=== PATIENT | male | born 1965 | race Caucasian/White ===

== ENCOUNTER 2020-04-06 07:59 | Inpatient (IN) | payer MEDICARE, MEDICAID ==
[2020-04-06] MEDS ORDERED: ceFAZolin 2 GM in Premix Bag 1 BAG IV ONE (08:00)
[2020-04-06] MEDS ORDERED: Propofol 200 MG/20 ML SDV ONE ×3 (08:40→13:01)
[2020-04-06] MEDS ORDERED: Midazolam 1 MG/ML 2 ML SDV ONE ×2 (08:40→11:02)
[2020-04-06] MEDS ORDERED: fentaNYL 100 MCG/2 ML SDV ONE ×3 (08:40→13:59)
[2020-04-06] MEDS: Nozin Nasal Sanitizer NASBOTH SCH ×3 (09:12→21:12)
[2020-04-06] MEDS: Lactated Ringers 1,000 ML IV SCH ×2 (09:29→16:10)
[2020-04-06] MEDS ORDERED: Lactated Ringers 1,000 ML ONE (11:34)
[2020-04-06] MEDS: Povidone-Iodine 10% Soln 118.25 ML Bottle ONE ×2 (11:35→14:04)
[2020-04-06] MEDS ORDERED: Ondansetron 4 MG Tab.DIS PO PRN (14:31)
[2020-04-06] MEDS ORDERED: Dicyclomine 10 MG Cap PO PRN ×2 (14:39→15:51)
[2020-04-06] MEDS ORDERED: Non-Formulary Medication 1 Each (Hydroxyzine Pamoate [Hydroxyzine Pamoate] 50 MG) PO PRN ×2 (14:39→15:51)
[2020-04-06] MEDS ORDERED: Diazepam 5 MG Tab PO PRN (14:39)
[2020-04-06] MEDS ORDERED: ceFAZolin 1 GM in Sodium Chloride 0.9% 50 ML IV SCH ×2 (14:45→16:00)
[2020-04-06] MEDS ORDERED: Morphine 4 MG/ML Syringe IVPUSH ONE (14:50)
--- NOTE | 2020-04-06 15:30 | CR ---
Pelvis 1V or 2V CLINICAL HISTORY: Postop left hip FINDINGS: Patient has bilateral total hip arthroplasties. There are also still sutures in both the the left trochanteric region and right subtrochanteric region. There has been revision on the left following previous dislocation seen in December 2019 IMPRESSION: Bilateral total hip arthroplasties
[2020-04-06] MEDS ORDERED: hydrOXYzine HCl 25 MG Tab PO PRN (16:06)
[2020-04-06] MEDS: Acetaminophen/oxyCODONE 325-5 MG Tab PO PRN ×2 (16:10→21:59)
[2020-04-06] MEDS: Nicotine Polacrilex 2 MG Gum CHEW PRN ×2 (17:02→22:00)
[2020-04-06] MEDS: ceFAZolin 1 GM in Premix Bag 1 BAG IV SCH (17:06)
[2020-04-06] MEDS: Morphine 30 MG Tab.ER PO SCH (18:05)
[2020-04-06] MEDS: Pregabalin 100 MG Cap PO SCH (20:48)
[2020-04-06] MEDS: ClonazePAM 1 MG Tab PO SCH (20:48)
[2020-04-06] MEDS ORDERED: Nozin Nasal Sanitizer NASBOTH SCH (21:00)
[2020-04-06] MEDS ORDERED: ClonazePAM 1 MG Tab PO SCH (21:00)
[2020-04-06] MEDS ORDERED: Pregabalin 100 MG Cap PO SCH (21:00)
[2020-04-06] MEDS ORDERED: AMITRIPTYLINE HCL 100 MG PO SCH ×2 (21:00)
[2020-04-06] MEDS ORDERED: Sodium Chloride 0.9% 500 ML IV ONE (22:02)
[2020-04-07] MEDS: ceFAZolin 1 GM in Premix Bag 1 BAG IV SCH ×2 (02:03→09:17)
[2020-04-07] MEDS: Lactated Ringers 1,000 ML IV SCH (02:16)
[2020-04-07] MEDS: Morphine 2 MG/ML SYRINGE IVPUSH PRN (02:38)
[2020-04-07] MEDS: Acetaminophen/oxyCODONE 325-5 MG Tab PO PRN ×4 (04:50→23:07)
[2020-04-07] MEDS: Morphine 30 MG Tab.ER PO SCH ×2 (06:33→18:17)
[2020-04-07] MEDS: Pantoprazole 40 MG Tab.CR PO SCH (06:59)
[2020-04-07] MEDS: Nicotine Polacrilex 2 MG Gum CHEW PRN ×3 (07:05→11:51)
[2020-04-07] MEDS ORDERED: OLANZAPINE 5 MG PO SCH ×2 (09:00)
[2020-04-07] MEDS ORDERED: Docusate Sodium 100 MG Cap PO SCH (09:00)
[2020-04-07] MEDS ORDERED: atorvaSTATin 20 MG Tab PO SCH (09:00)
[2020-04-07] MEDS ORDERED: PALIPERIDONE 6 MG PO SCH (09:00)
[2020-04-07] MEDS ORDERED: Enoxaparin 30 MG/0.3 ML Syringe SUBCUT SCH (09:00)
[2020-04-07] MEDS ORDERED: VENLAFAXINE PO SCH ×2 (09:00)
[2020-04-07] MEDS ORDERED: Non-Formulary Medication 1 Each (Omeprazole Magnesium [Prilosec Otc] 20 MG) PO SCH ×2 (09:00)
[2020-04-07] MEDS ORDERED: METHYLPHENIDATE HCL 36 MG PO SCH (09:00)
[2020-04-07] MEDS: Nozin Nasal Sanitizer NASBOTH SCH ×2 (09:12→21:30)
[2020-04-07] MEDS: OLANZapine 5 MG Tab PO SCH (09:13)
[2020-04-07] MEDS: Venlafaxine 75 MG Cap.ER PO SCH (09:13)
[2020-04-07] MEDS: ClonazePAM 1 MG Tab PO SCH ×3 (09:16→21:33)
[2020-04-07] MEDS: Pregabalin 100 MG Cap PO SCH ×2 (09:16→21:33)
[2020-04-07] MEDS: Docusate Sodium 100 MG Cap PO SCH (10:25)
[2020-04-07] MEDS: atorvaSTATin 20 MG Tab PO SCH (10:25)
[2020-04-07] MEDS: Enoxaparin 30 MG/0.3 ML Syringe SUBCUT SCH (10:26)
[2020-04-07] MEDS: Paliperidone 3 MG Tab.ER PO SCH (10:26)
[2020-04-07] MEDS: METHYLPHENIDATE 18 MG PO SCH (10:28)
[2020-04-07] MEDS: Ketorolac 30 MG/ML SDV IVPUSH SCH ×2 (10:45→18:29)
--- NOTE | 2020-04-07 15:31 | CR ---
Hip Min 1V Lt portable CLINICAL HISTORY: Popping FINDINGS: There is been superior dislocation of the left hip arthroplasty since the eighth 11/22/2019 study IMPRESSION: Dislocation left hip prosthesis
[2020-04-08] MEDS: Ketorolac 30 MG/ML SDV IVPUSH SCH ×3 (03:30→19:26)
[2020-04-08] MEDS: Morphine 30 MG Tab.ER PO SCH ×2 (06:17→18:03)
[2020-04-08] MEDS: Acetaminophen/oxyCODONE 325-5 MG Tab PO PRN (07:26)
[2020-04-08] MEDS: Pantoprazole 40 MG Tab.CR PO SCH (07:27)
[2020-04-08] MEDS: Paliperidone 3 MG Tab.ER PO SCH (09:23)
[2020-04-08] MEDS: Venlafaxine 75 MG Cap.ER PO SCH (09:23)
[2020-04-08] MEDS: OLANZapine 5 MG Tab PO SCH (09:23)
[2020-04-08] MEDS: Nozin Nasal Sanitizer NASBOTH SCH ×2 (09:23→22:11)
[2020-04-08] MEDS: Docusate Sodium 100 MG Cap PO SCH (09:24)
[2020-04-08] MEDS: atorvaSTATin 20 MG Tab PO SCH (09:24)
[2020-04-08] MEDS: Enoxaparin 30 MG/0.3 ML Syringe SUBCUT SCH (09:26)
[2020-04-08] MEDS: Pregabalin 100 MG Cap PO SCH ×2 (09:30→22:09)
[2020-04-08] MEDS: ClonazePAM 1 MG Tab PO SCH ×3 (09:30→22:09)
[2020-04-08] MEDS: METHYLPHENIDATE 18 MG PO SCH (11:04)
[2020-04-08] MEDS: Morphine 2 MG/ML SYRINGE IVPUSH PRN ×4 (11:15→23:17)
--- NOTE | 2020-04-08 13:51 | PCM.SURGPN ---
- General Info Date of Service: 04/07/20 Date of Surgery/Procedure: 04/06/20 POD#: 1 Functional Status: Reports: Pain Controlled, Tolerating Diet, Ambulating - Review of Systems General: Reports: No Symptoms HEENT: Reports: No Symptoms Pulmonary: Reports: No Symptoms Cardiovascular: Reports: No Symptoms Gastrointestinal: Reports: No Symptoms Genitourinary: Reports: No Symptoms Musculoskeletal: Reports: Leg Pain Skin: Reports: No Symptoms Neurological: Reports: No Symptoms Psychiatric: Reports: No Symptoms - Patient Data Vitals - Most Recent: Last Vital Signs Temp 36.3 C 04/08/20 11:00 Pulse 108 H 04/08/20 11:00 Resp 18 04/08/20 11:00 BP 98/62 04/08/20 11:00 Pulse Ox 97 04/08/20 11:00 Weight - Most Recent: 81.647 kg I&O - Last 24 Hours: Intake & Output 04/07/20 04/08/20 04/08/20 22:59 06:59 14:59 Intake Total 1200 Output Total 220 1950 150 Balance 980 -1950 -150 Med Orders - Current: Current Medications Hydrocodone Bitart/Acetaminophen ([place] 325-5 Mg) 2 tab PO Q4H PRN PRN Reason: Pain (mild 1-3) Amitriptyline HCl (Elavil) 100 mg PO BEDTIME [facility] Last Admin: 04/07/20 21:30 Dose: 100 mg Documented by: Atorvastatin Calcium (Lipitor) 20 mg PO DAILY [facility] Last Admin: 04/08/20 09:24 Dose: 20 mg Documented by: Bandage/Support Products ( Nasal Drill Press Operator For Metal) 1 applic NASBOTH BID [facility] Last Admin: 04/08/20 09:23 Dose: 1 swab Documented by: Clonazepam (Klonopin) 1 mg PO TID [facility] Last Admin: 04/08/20 09:30 Dose: 1 mg Documented by: Diazepam (Valium.) 5 mg PO Q6H PRN PRN Reason: Muscle Spasm Dicyclomine HCl (Bentyl) 10 mg PO QID PRN PRN Reason: Pain Docusate Sodium (Colace) 100 mg PO DAILY [facility] Last Admin: 04/08/20 09:24 Dose: 100 mg Documented by: Enoxaparin Sodium (Lovenox) 30 mg SUBCUT DAILY [facility] Last Admin: 04/08/20 09:26 Dose: 30 mg Documented by: Hydroxyzine HCl (Atarax) 50 mg PO Q6H PRN PRN Reason: ANXIETY Ketorolac Tromethamine (Toradol) 30 mg IVPUSH Q8H [facility] Stop: 04/09/20 03:01 Last Admin: 04/08/20 11:02 Dose: 30 mg Documented by: Magnesium Hydroxide (Milk Of Magnesia) 30 ml PO Q6H PRN PRN Reason: Stool Softener Methylphenidate HCl (Concerta) 36 mg PO DAILY [facility] Last Admin: 04/08/20 11:04 Dose: Not Given Documented by: Morphine Sulfate (Morphine) 2 mg IVPUSH Q1H PRN PRN Reason: Breakthrough Pain Last Admin: 04/08/20 11:15 Dose: 2 mg Documented by: Morphine Sulfate (Ms Contin) 30 mg PO Q12H [facility] Last Admin: 04/08/20 06:17 Dose: 30 mg Documented by: Nicotine Polacrilex (Nicorelief) 2 mg CHEW Q1H PRN PRN Reason: NICOTINE CRAVINGS Last Admin: 04/07/20 11:51 Dose: 2 mg Documented by: Olanzapine (Zyprexa) 5 mg PO DAILY [facility] Last Admin: 04/08/20 09:23 Dose: 5 mg Documented by: Ondansetron HCl (Zofran Odt) 4 mg PO Q6H PRN PRN Reason: Nausea/Vomiting Oxycodone/Acetaminophen (Percocet 325-5 Mg) 0 tab PO Q6H PRN PRN Reason: Pain (severe 7-10) Last Admin: 04/08/20 07:26 Dose: 1 tab Documented by: Paliperidone (Invega) 6 mg PO DAILY [facility] Last Admin: 04/08/20 09:23 Dose: 6 mg Documented by: Pantoprazole Sodium (Protonix) 40 mg PO ACBREAKFAST [facility] Last Admin: 04/08/20 07:27 Dose: 40 mg Documented by: Pregabalin (Lyrica) 100 mg PO BID [facility] Last Admin: 04/08/20 09:30 Dose: 100 mg Documented by: Venlafaxine HCl (Effexor Xr) 300 mg PO DAILY [facility] Last Admin: 04/08/20 09:23 Dose: 300 mg Documented by: Discontinued Medications Atorvastatin Calcium (Lipitor) 20 mg PO DAILY [facility] Clonazepam (Klonopin) 1 mg PO TID [facility] Dicyclomine HCl (Bentyl) 10 mg PO QID PRN PRN Reason: Pain Docusate Sodium (Colace) 100 mg PO DAILY [facility] Enoxaparin Sodium (Lovenox) 30 mg SUBCUT DAILY [facility] Fentanyl (Sublimaze) Confirm Administered Dose 100 mcg .ROUTE .STK-MED ONE Stop: 04/06/20 08:41 Fentanyl (Sublimaze) Confirm Administered Dose 100 mcg .ROUTE .STK-MED ONE Stop: 04/06/20 13:00 Fentanyl (Sublimaze) Confirm Administered Dose 100 mcg .ROUTE .STK-MED ONE Stop: 04/06/20 14:00 Cefazolin Sodium/Dextrose 2 gm (/ Premix) 50 mls @ 100 mls/hr IV ONETIME ONE Stop: 04/06/20 08:29 Last Admin: 04/06/20 10:45 Dose: 100 mls/hr Documented by: Lactated Ringer's (Ringers, Lactated) 1,000 mls @ 100 mls/hr IV ASDIRECTED [facility] Last Admin: 04/07/20 02:16 Dose: 100 mls/hr Documented by: Lactated Ringer's (Ringers, Lactated) Confirm Administered Dose 1,000 mls @ as directed .ROUTE .STK-MED ONE Stop: 04/06/20 11:35 Cefazolin Sodium 1 gm/ Sodium (Chloride) 50 mls @ 200 mls/hr IV Q8H [facility] Stop: 04/07/20 06:59 Last Admin: 04/06/20 16:10 Dose: Not Given Documented by: Cefazolin Sodium/Dextrose 1 gm (/ Premix) 50 mls @ 100 mls/hr IV Q8H [facility] Stop: 04/07/20 10:29 Last Admin: 04/07/20 09:17 Dose: 100 mls/hr Documented by: Sodium Chloride (Normal Saline) 500 mls @ 500 mls/hr IV .BOLUS ONE Stop: 04/06/20 23:01 Last Admin: 04/06/20 22:31 Dose: 500 mls/hr Documented by: Midazolam HCl (Versed 1 Mg/Ml) Confirm Administered Dose 2 mg .ROUTE .STK-MED ONE Stop: 04/06/20 08:41 Midazolam HCl (Versed 1 Mg/Ml) Confirm Administered Dose 2 mg .ROUTE .STK-MED ONE Stop: 04/06/20 11:03 Morphine Sulfate (Morphine) 3 mg IVPUSH ONETIME ONE Stop: 04/06/20 14:51 Last Admin: 04/06/20 14:57 Dose: 3 mg Documented by: Non-Formulary Medication (Amitriptyline Hcl [Amitriptyline Hcl]) 100 mg PO BEDTIME [facility] Non-Formulary Medication (Hydroxyzine Pamoate [Hydroxyzine Pamoate]) 50 mg PO Q6HR PRN PRN Reason: Anxiety Non-Formulary Medication (Methylphenidate Hcl [Methylphenidate Er]) 36 mg PO DAILY [facility] Non-Formulary Medication (Olanzapine [Zyprexa]) 5 mg PO DAILY [facility] Non-Formulary Medication (Omeprazole Magnesium [Prilosec Otc]) 20 mg PO DAILY [facility] Non-Formulary Medication (Paliperidone [Invega]) 6 mg PO DAILY [facility] Non-Formulary Medication (Venlafaxine [Effexor Xr]) 375 mg PO DAILY [facility] Povidone Iodine (Betadine 10% Soln) Confirm Administered Dose 1 ml .ROUTE .STK- MED ONE Stop: 04/06/20 06:53 Last Admin: 04/06/20 14:04 Dose: 40 ml Documented by: Pregabalin (Lyrica) 100 mg PO BID [facility] Propofol (Diprivan 20 Ml) Confirm Administered Dose 200 mg .ROUTE .STK-MED ONE Stop: 04/06/20 08:41 Propofol (Diprivan 20 Ml) Confirm Administered Dose 200 mg .ROUTE .STK-MED ONE Stop: 04/06/20 11:36 Propofol (Diprivan 20 Ml) Confirm Administered Dose 200 mg .ROUTE .STK-MED ONE Stop: 04/06/20 13:02 - Exam Wound/Incisions: Drainage General: Alert, Oriented HEENT: Pupils Equal, Pupils Reactive, EOMI, Mucous Membr. Moist/[place] Neck: Supple Lungs: Clear to Auscultation, Normal Respiratory Effort Cardiovascular: Regular Rate, Regular Rhythm GI/Abdominal Exam: Normal Bowel Sounds, Soft, Non-Tender, No Distention Extremities: Leg Pain, Limited Range of Motion Skin: Warm, Dry Neurological: No New Focal Deficit Psy/Mental Status: Alert, Normal Affect, Normal Mood Physical Findings Comment:: limited strength and ROM of left hip, grinding sensation with motion, Left leg shorter Sepsis Event Note - Evaluation Sepsis Screening Result: Sepsis Risk - Focused Exam Vital Signs: Vital Signs Temp Pulse Resp BP Pulse Ox 04/08/20 11:00 36.3 C 108 H 18 98/62 97 04/08/20 07:16 35.7 C L 111 H 20 113/69 97 Date Exam was Performed: 04/08/20 Time Exam was Performed: 13:59 - Problem List & Annotations (1) Failed total hip arthroplasty with dislocation SNOMED Code(s): 713325760 Code(s): T84.028A - DISLOCATION OF OTHER INTERNAL JOINT PROSTHESIS, INIT ENCNTR; Z96.649 - PRESENCE OF UNSPECIFIED ARTIFICIAL HIP JOINT Status: Acute Current Visit: No Qualifiers: Encounter type: sequela Laterality: left Qualified Code(s): T84.021S - Dislocation of internal left hip prosthesis, sequela (2) Hip pain, left SNOMED Code(s): 68282295 Code(s): M25.552 - PAIN IN LEFT HIP Status: Acute Current Visit: No (3) S/P revision of total hip SNOMED Code(s): 197198539, 095222560, 187199071, 797269998 Code(s): Z96.649 - PRESENCE OF UNSPECIFIED ARTIFICIAL HIP JOINT Status: Acute Current Visit: No (4) Unequal limb length (acquired), unspecified site SNOMED Code(s): 659667892827898 Code(s): M21.70 - UNEQUAL LIMB LENGTH (ACQUIRED), UNSPECIFIED SITE Status: Acute Current Visit: No - Problem List Review Problem List Initiated/Reviewed/Updated: Yes - My Orders Last 24 Hours: Active Orders 24 hr Category Date Time Status Bedrest [RC] ASDIRECTED Care 04/07/20 14:38 Active Convert IV to Saline Lock [OM.PC] Routine Oth 04/07/20 14:38 Ordered Medication Orders Hydrocodone Bitart/Acetaminophen ([place] 325-5 Mg) 2 tab PO Q4H PRN PRN Reason: Pain (mild 1-3) Amitriptyline HCl (Elavil) 100 mg PO BEDTIME [facility] Last Admin: 04/07/20 21:30 Dose: 100 mg Documented by: Admin: 04/06/20 20:48 Dose: 100 mg Documented by: PAT Atorvastatin Calcium (Lipitor) 20 mg PO DAILY [facility] Last Admin: 04/08/20 09:24 Dose: 20 mg Documented by: Admin: 04/07/20 10:25 Dose: 20 mg Documented by: DANE Bandage/Support Products ( Nasal Drill Press Operator For Metal) 1 applic NASBOTH BID [facility] Last Admin: 04/08/20 09:23 Dose: 1 swab Documented by: Admin: 04/07/20 21:30 Dose: 1 swab Documented by: Admin: 04/07/20 09:12 Dose: 1 swab Documented by: Admin: 04/06/20 21:12 Dose: Not Given Documented by: Admin: 04/06/20 16:06 Dose: Not Given Documented by: Admin: 04/06/20 09:12 Dose: 3 swab Documented by: SHEYLA Clonazepam (Klonopin) 1 mg PO TID [facility] Last Admin: 04/08/20 09:30 Dose: 1 mg Documented by: Admin: 04/07/20 21:33 Dose: 1 mg Documented by: Admin: 04/07/20 14:24 Dose: 1 mg Documented by: Admin: 04/07/20 09:16 Dose: 1 mg Documented by: Admin: 04/06/20 20:48 Dose: 1 mg Documented by: PAT Diazepam (Valium.) 5 mg PO Q6H PRN PRN Reason: Muscle Spasm Dicyclomine HCl (Bentyl) 10 mg PO QID PRN PRN Reason: Pain Docusate Sodium (Colace) 100 mg PO DAILY [facility] Last Admin: 04/08/20 09:24 Dose: 100 mg Documented by: Admin: 04/07/20 10:25 Dose: 100 mg Documented by: DANE Enoxaparin Sodium (Lovenox) 30 mg SUBCUT DAILY [facility] Last Admin: 04/08/20 09:26 Dose: 30 mg Documented by: Admin: 04/07/20 10:26 Dose: 30 mg Documented by: DANE Hydroxyzine HCl (Atarax) 50 mg PO Q6H PRN PRN Reason: ANXIETY Ketorolac Tromethamine (Toradol) 30 mg IVPUSH Q8H [facility] Stop: 04/09/20 03:01 Last Admin: 04/08/20 11:02 Dose: 30 mg Documented by: Admin: 04/08/20 03:30 Dose: 30 mg Documented by: Admin: 04/07/20 18:29 Dose: 30 mg Documented by: Admin: 04/07/20 10:45 Dose: 30 mg Documented by: DANE Magnesium Hydroxide (Milk Of Magnesia) 30 ml PO Q6H PRN PRN Reason: Stool Softener Methylphenidate HCl (Concerta) 36 mg PO DAILY [facility] Last Admin: 04/08/20 11:04 Dose: Not Given Documented by: Admin: 04/07/20 10:28 Dose: Not Given Documented by: DANE Morphine Sulfate (Morphine) 2 mg IVPUSH Q1H PRN PRN Reason: Breakthrough Pain Last Admin: 04/08/20 11:15 Dose: 2 mg Documented by: Admin: 04/07/20 02:38 Dose: 2 mg Documented by: YUNIOR Morphine Sulfate (Ms Contin) 30 mg PO Q12H [facility] Last Admin: 04/08/20 06:17 Dose: 30 mg Documented by: Admin: 04/07/20 18:17 Dose: 30 mg Documented by: Admin: 04/07/20 06:33 Dose: 30 mg Documented by: Admin: 04/06/20 18:05 Dose: 30 mg Documented by: DANE Nicotine Polacrilex (Nicorelief) 2 mg CHEW Q1H PRN PRN Reason: NICOTINE CRAVINGS Last Admin: 04/07/20 11:51 Dose: 2 mg Documented by: Admin: 04/07/20 10:36 Dose: 2 mg Documented by: Admin: 04/07/20 07:05 Dose: 2 mg Documented by: Admin: 04/06/20 22:00 Dose: 2 mg Documented by: Admin: 04/06/20 17:02 Dose: 2 mg Documented by: DANE Olanzapine (Zyprexa) 5 mg PO DAILY [facility] Last Admin: 04/08/20 09:23 Dose: 5 mg Documented by: Admin: 04/07/20 09:13 Dose: 5 mg Documented by: DANE Ondansetron HCl (Zofran Odt) 4 mg PO Q6H PRN PRN Reason: Nausea/Vomiting Oxycodone/Acetaminophen (Percocet 325-5 Mg) 0 tab PO Q6H PRN PRN Reason: Pain (severe 7-10) Last Admin: 04/08/20 07:26 Dose: 1 tab Documented by: Admin: 04/07/20 23:07 Dose: 1 tab Documented by: Admin: 04/07/20 16:44 Dose: 2 tab Documented by: Admin: 04/07/20 10:36 Dose: 2 tab Documented by: Admin: 04/07/20 04:50 Dose: 2 tab Documented by: Admin: 04/06/20 21:59 Dose: 2 tab Documented by: Admin: 04/06/20 16:10 Dose: 2 tab Documented by: DANE Paliperidone (Invega) 6 mg PO DAILY [facility] Last Admin: 04/08/20 09:23 Dose: 6 mg Documented by: Admin: 04/07/20 10:26 Dose: 6 mg Documented by: DANE Pantoprazole Sodium (Protonix) 40 mg PO ACBREAKFAST [facility] Last Admin: 04/08/20 07:27 Dose: 40 mg Documented by: Admin: 04/07/20 06:59 Dose: 40 mg Documented by: DANE Pregabalin (Lyrica) 100 mg PO BID [facility] Last Admin: 04/08/20 09:30 Dose: 100 mg Documented by: Admin: 04/07/20 21:33 Dose: 100 mg Documented by: Admin: 04/07/20 09:16 Dose: 100 mg Documented by: Admin: 04/06/20 20:48 Dose: 100 mg Documented by: PAT Venlafaxine HCl (Effexor Xr) 300 mg PO DAILY [facility] Last Admin: 04/08/20 09:23 Dose: 300 mg Documented by: Admin: 04/07/20 09:13 Dose: 300 mg Documented by: DANE - Assessment Assessment (Free Text/Narrative):: Tolerated procedure well and was sitting up in chair midday, pain was reasonably well controlled, was up walking and felt a pop in left hip with increased pain and grinding sensation, x-ray shows that the liner has dislodged from the cup and the femoral head and liner are dislocated. - Plan Plan (Free Text/Narrative):: Will need to revise this with a cemented constrained liner. These components will have to be brought in from [place] and will likely not be available until late Monday or . Can get on the schedule when implants are available. Discussed all this with Wilfredo and used a hip arthroplasty model for illustration, he understands the situation and agrees with the plan.
[2020-04-08] MEDS: Acetaminophen/HYDROcodone 325-5 MG Tab PO PRN ×2 (13:55→22:09)
--- NOTE | 2020-04-08 14:11 | PCM.SURGPN ---
- General Info Date of Service: 04/08/20 Date of Surgery/Procedure: 04/06/20 POD#: 2 Functional Status: Reports: Pain Controlled, Tolerating Diet, Urinating - Review of Systems General: Reports: No Symptoms HEENT: Reports: No Symptoms Pulmonary: Reports: No Symptoms Cardiovascular: Reports: No Symptoms Gastrointestinal: Reports: No Symptoms Genitourinary: Reports: No Symptoms Musculoskeletal: Reports: Leg Pain Skin: Reports: No Symptoms Neurological: Reports: No Symptoms Psychiatric: Reports: No Symptoms - Patient Data Vitals - Most Recent: Last Vital Signs Temp 36.2 C 04/08/20 14:01 Pulse 108 H 04/08/20 14:01 Resp 16 04/08/20 14:01 BP 90/57 L 04/08/20 14:01 Pulse Ox 100 04/08/20 14:01 Weight - Most Recent: 81.647 kg I&O - Last 24 Hours: Intake & Output 04/07/20 04/08/20 04/08/20 22:59 06:59 14:59 Intake Total 1200 1400 Output Total 220 1950 350 Balance 980 -1950 1050 Med Orders - Current: Current Medications Hydrocodone Bitart/Acetaminophen ([place] 325-5 Mg) 2 tab PO Q4H PRN PRN Reason: Pain (mild 1-3) Last Admin: 04/08/20 13:55 Dose: 2 tab Documented by: Amitriptyline HCl (Elavil) 100 mg PO BEDTIME [facility] Last Admin: 04/07/20 21:30 Dose: 100 mg Documented by: Atorvastatin Calcium (Lipitor) 20 mg PO DAILY [facility] Last Admin: 04/08/20 09:24 Dose: 20 mg Documented by: Bandage/Support Products ( Nasal [employer]ist) 1 applic NASBOTH BID [facility] Last Admin: 04/08/20 09:23 Dose: 1 swab Documented by: Clonazepam (Klonopin) 1 mg PO TID [facility] Last Admin: 04/08/20 13:55 Dose: 1 mg Documented by: Diazepam (Valium.) 5 mg PO Q6H PRN PRN Reason: Muscle Spasm Dicyclomine HCl (Bentyl) 10 mg PO QID PRN PRN Reason: Pain Docusate Sodium (Colace) 100 mg PO DAILY [facility] Last Admin: 04/08/20 09:24 Dose: 100 mg Documented by: Enoxaparin Sodium (Lovenox) 30 mg SUBCUT DAILY [facility] Last Admin: 04/08/20 09:26 Dose: 30 mg Documented by: Hydroxyzine HCl (Atarax) 50 mg PO Q6H PRN PRN Reason: ANXIETY Ketorolac Tromethamine (Toradol) 30 mg IVPUSH Q8H [facility] Stop: 04/09/20 03:01 Last Admin: 04/08/20 11:02 Dose: 30 mg Documented by: Magnesium Hydroxide (Milk Of Magnesia) 30 ml PO Q6H PRN PRN Reason: Stool Softener Methylphenidate HCl (Concerta) 36 mg PO DAILY [facility] Last Admin: 04/08/20 11:04 Dose: Not Given Documented by: Morphine Sulfate (Morphine) 2 mg IVPUSH Q1H PRN PRN Reason: Breakthrough Pain Last Admin: 04/08/20 11:15 Dose: 2 mg Documented by: Morphine Sulfate (Ms Contin) 30 mg PO Q12H [facility] Last Admin: 04/08/20 06:17 Dose: 30 mg Documented by: Nicotine Polacrilex (Nicorelief) 2 mg CHEW Q1H PRN PRN Reason: NICOTINE CRAVINGS Last Admin: 04/07/20 11:51 Dose: 2 mg Documented by: Olanzapine (Zyprexa) 5 mg PO DAILY [facility] Last Admin: 04/08/20 09:23 Dose: 5 mg Documented by: Ondansetron HCl (Zofran Odt) 4 mg PO Q6H PRN PRN Reason: Nausea/Vomiting Oxycodone/Acetaminophen (Percocet 325-5 Mg) 0 tab PO Q6H PRN PRN Reason: Pain (severe 7-10) Last Admin: 04/08/20 07:26 Dose: 1 tab Documented by: Paliperidone (Invega) 6 mg PO DAILY [facility] Last Admin: 04/08/20 09:23 Dose: 6 mg Documented by: Pantoprazole Sodium (Protonix) 40 mg PO ACBREAKFAST [facility] Last Admin: 04/08/20 07:27 Dose: 40 mg Documented by: Pregabalin (Lyrica) 100 mg PO BID [facility] Last Admin: 04/08/20 09:30 Dose: 100 mg Documented by: Venlafaxine HCl (Effexor Xr) 300 mg PO DAILY [facility] Last Admin: 04/08/20 09:23 Dose: 300 mg Documented by: Discontinued Medications Atorvastatin Calcium (Lipitor) 20 mg PO DAILY [facility] Clonazepam (Klonopin) 1 mg PO TID [facility] Dicyclomine HCl (Bentyl) 10 mg PO QID PRN PRN Reason: Pain Docusate Sodium (Colace) 100 mg PO DAILY [facility] Enoxaparin Sodium (Lovenox) 30 mg SUBCUT DAILY [facility] Fentanyl (Sublimaze) Confirm Administered Dose 100 mcg .ROUTE .STK-MED ONE Stop: 04/06/20 08:41 Fentanyl (Sublimaze) Confirm Administered Dose 100 mcg .ROUTE .STK-MED ONE Stop: 04/06/20 13:00 Fentanyl (Sublimaze) Confirm Administered Dose 100 mcg .ROUTE .STK-MED ONE Stop: 04/06/20 14:00 Cefazolin Sodium/Dextrose 2 gm (/ Premix) 50 mls @ 100 mls/hr IV ONETIME ONE Stop: 04/06/20 08:29 Last Admin: 04/06/20 10:45 Dose: 100 mls/hr Documented by: Lactated Ringer's (Ringers, Lactated) 1,000 mls @ 100 mls/hr IV ASDIRECTED [facility] Last Admin: 04/07/20 02:16 Dose: 100 mls/hr Documented by: Lactated Ringer's (Ringers, Lactated) Confirm Administered Dose 1,000 mls @ as directed .ROUTE .STK-MED ONE Stop: 04/06/20 11:35 Cefazolin Sodium 1 gm/ Sodium (Chloride) 50 mls @ 200 mls/hr IV Q8H [facility] Stop: 04/07/20 06:59 Last Admin: 04/06/20 16:10 Dose: Not Given Documented by: Cefazolin Sodium/Dextrose 1 gm (/ Premix) 50 mls @ 100 mls/hr IV Q8H [facility] Stop: 04/07/20 10:29 Last Admin: 04/07/20 09:17 Dose: 100 mls/hr Documented by: Sodium Chloride (Normal Saline) 500 mls @ 500 mls/hr IV .BOLUS ONE Stop: 04/06/20 23:01 Last Admin: 04/06/20 22:31 Dose: 500 mls/hr Documented by: Midazolam HCl (Versed 1 Mg/Ml) Confirm Administered Dose 2 mg .ROUTE .STK-MED ONE Stop: 04/06/20 08:41 Midazolam HCl (Versed 1 Mg/Ml) Confirm Administered Dose 2 mg .ROUTE .STK-MED ONE Stop: 04/06/20 11:03 Morphine Sulfate (Morphine) 3 mg IVPUSH ONETIME ONE Stop: 04/06/20 14:51 Last Admin: 04/06/20 14:57 Dose: 3 mg Documented by: Non-Formulary Medication (Amitriptyline Hcl [Amitriptyline Hcl]) 100 mg PO BEDTIME [facility] Non-Formulary Medication (Hydroxyzine Pamoate [Hydroxyzine Pamoate]) 50 mg PO Q6HR PRN PRN Reason: Anxiety Non-Formulary Medication (Methylphenidate Hcl [Methylphenidate Er]) 36 mg PO DAILY [facility] Non-Formulary Medication (Olanzapine [Zyprexa]) 5 mg PO DAILY [facility] Non-Formulary Medication (Omeprazole Magnesium [Prilosec Otc]) 20 mg PO DAILY [facility] Non-Formulary Medication (Paliperidone [Invega]) 6 mg PO DAILY [facility] Non-Formulary Medication (Venlafaxine [Effexor Xr]) 375 mg PO DAILY [facility] Povidone Iodine (Betadine 10% Soln) Confirm Administered Dose 1 ml .ROUTE .STK- MED ONE Stop: 04/06/20 06:53 Last Admin: 04/06/20 14:04 Dose: 40 ml Documented by: Pregabalin (Lyrica) 100 mg PO BID [facility] Propofol (Diprivan 20 Ml) Confirm Administered Dose 200 mg .ROUTE .STK-MED ONE Stop: 04/06/20 08:41 Propofol (Diprivan 20 Ml) Confirm Administered Dose 200 mg .ROUTE .STK-MED ONE Stop: 04/06/20 11:36 Propofol (Diprivan 20 Ml) Confirm Administered Dose 200 mg .ROUTE .STK-MED ONE Stop: 04/06/20 13:02 - Exam Wound/Incisions: Other (No new drainage) General: Alert, Oriented HEENT: Pupils Equal, Pupils Reactive, EOMI, Mucous Membr. Moist/[place] Neck: Supple Lungs: Clear to Auscultation, Normal Respiratory Effort Cardiovascular: Regular Rate, Regular Rhythm GI/Abdominal Exam: Normal Bowel Sounds, Soft, Non-Tender, No Distention Extremities: Leg Pain, Limited Range of Motion Skin: Warm, Dry Neurological: No New Focal Deficit Psy/Mental Status: Alert Sepsis Event Note - Evaluation Sepsis Screening Result: Sepsis Risk - Focused Exam Vital Signs: Vital Signs Temp Pulse Resp BP Pulse Ox 04/08/20 14:01 36.2 C 108 H 16 90/57 L 100 04/08/20 11:00 36.3 C 108 H 18 98/62 97 04/08/20 07:16 35.7 C L 111 H 20 113/69 97 Date Exam was Performed: 04/08/20 Time Exam was Performed: 14:06 - Problem List & Annotations (1) Failed total hip arthroplasty with dislocation SNOMED Code(s): 682508906 Code(s): T84.028A - DISLOCATION OF OTHER INTERNAL JOINT PROSTHESIS, INIT ENCNTR; Z96.649 - PRESENCE OF UNSPECIFIED ARTIFICIAL HIP JOINT Status: Acute Current Visit: No Qualifiers: Encounter type: sequela Laterality: left Qualified Code(s): T84.021S - Dislocation of internal left hip prosthesis, sequela (2) Hip pain, left SNOMED Code(s): 51500622 Code(s): M25.552 - PAIN IN LEFT HIP Status: Acute Current Visit: No (3) S/P revision of total hip SNOMED Code(s): 502265032, 124237159, 877190434, 925561969 Code(s): Z96.649 - PRESENCE OF UNSPECIFIED ARTIFICIAL HIP JOINT Status: Acute Current Visit: No (4) Unequal limb length (acquired), unspecified site SNOMED Code(s): 637267628734665 Code(s): M21.70 - UNEQUAL LIMB LENGTH (ACQUIRED), UNSPECIFIED SITE Status: Acute Current Visit: No - Problem List Review Problem List Initiated/Reviewed/Updated: Yes - My Orders Last 24 Hours: Active Orders 24 hr Category Date Time Status Bedrest [RC] ASDIRECTED Care 04/07/20 14:38 Active Convert IV to Saline Lock [OM.PC] Routine Oth 04/07/20 14:38 Ordered Medication Orders Hydrocodone Bitart/Acetaminophen ([place] 325-5 Mg) 2 tab PO Q4H PRN PRN Reason: Pain (mild 1-3) Last Admin: 04/08/20 13:55 Dose: 2 tab Documented by: ELIGIO Amitriptyline HCl (Elavil) 100 mg PO BEDTIME [facility] Last Admin: 04/07/20 21:30 Dose: 100 mg Documented by: Admin: 04/06/20 20:48 Dose: 100 mg Documented by: PAT Atorvastatin Calcium (Lipitor) 20 mg PO DAILY [facility] Last Admin: 04/08/20 09:24 Dose: 20 mg Documented by: Admin: 04/07/20 10:25 Dose: 20 mg Documented by: DANE Bandage/Support Products ( Nasal [employer]) 1 applic NASBOTH BID [facility] Last Admin: 04/08/20 09:23 Dose: 1 swab Documented by: Admin: 04/07/20 21:30 Dose: 1 swab Documented by: Admin: 04/07/20 09:12 Dose: 1 swab Documented by: Admin: 04/06/20 21:12 Dose: Not Given Documented by: Admin: 04/06/20 16:06 Dose: Not Given Documented by: Admin: 04/06/20 09:12 Dose: 3 swab Documented by: SHEYLA Clonazepam (Klonopin) 1 mg PO TID [facility] Admin: 04/08/20 13:55 Dose: 1 mg Documented by: Admin: 04/08/20 09:30 Dose: 1 mg Documented by: Admin: 04/07/20 21:33 Dose: 1 mg Documented by: Admin: 04/07/20 14:24 Dose: 1 mg Documented by: Admin: 04/07/20 09:16 Dose: 1 mg Documented by: Admin: 04/06/20 20:48 Dose: 1 mg Documented by: PAT Diazepam (Valium.) 5 mg PO Q6H PRN PRN Reason: Muscle Spasm Dicyclomine HCl (Bentyl) 10 mg PO QID PRN PRN Reason: Pain Docusate Sodium (Colace) 100 mg PO DAILY [facility] Admin: 04/08/20 09:24 Dose: 100 mg Documented by: Admin: 04/07/20 10:25 Dose: 100 mg Documented by: DANE Enoxaparin Sodium (Lovenox) 30 mg SUBCUT DAILY [facility] Last Admin: 04/08/20 09:26 Dose: 30 mg Documented by: Admin: 04/07/20 10:26 Dose: 30 mg Documented by: DANE Hydroxyzine HCl (Atarax) 50 mg PO Q6H PRN PRN Reason: ANXIETY Ketorolac Tromethamine (Toradol) 30 mg IVPUSH Q8H [facility] Stop: 04/09/20 03:01 Last Admin: 04/08/20 11:02 Dose: 30 mg Documented by: Admin: 04/08/20 03:30 Dose: 30 mg Documented by: Admin: 04/07/20 18:29 Dose: 30 mg Documented by: Admin: 04/07/20 10:45 Dose: 30 mg Documented by: DANE Magnesium Hydroxide (Milk Of Magnesia) 30 ml PO Q6H PRN PRN Reason: Stool Softener Methylphenidate HCl (Concerta) 36 mg PO DAILY [facility] Last Admin: 04/08/20 11:04 Dose: Not Given Documented by: Admin: 04/07/20 10:28 Dose: Not Given Documented by: DANE Morphine Sulfate (Morphine) 2 mg IVPUSH Q1H PRN PRN Reason: Breakthrough Pain Last Admin: 04/08/20 11:15 Dose: 2 mg Documented by: Admin: 04/07/20 02:38 Dose: 2 mg Documented by: YUNIOR Morphine Sulfate (Ms Contin) 30 mg PO Q12H [facility] Last Admin: 04/08/20 06:17 Dose: 30 mg Documented by: Admin: 04/07/20 18:17 Dose: 30 mg Documented by: Admin: 04/07/20 06:33 Dose: 30 mg Documented by: Admin: 04/06/20 18:05 Dose: 30 mg Documented by: DANE Nicotine Polacrilex (Nicorelief) 2 mg CHEW Q1H PRN PRN Reason: NICOTINE CRAVINGS Last Admin: 04/07/20 11:51 Dose: 2 mg Documented by: Admin: 04/07/20 10:36 Dose: 2 mg Documented by: Admin: 04/07/20 07:05 Dose: 2 mg Documented by: Admin: 04/06/20 22:00 Dose: 2 mg Documented by: Admin: 04/06/20 17:02 Dose: 2 mg Documented by: DANE Olanzapine (Zyprexa) 5 mg PO DAILY [facility] Last Admin: 04/08/20 09:23 Dose: 5 mg Documented by: Admin: 04/07/20 09:13 Dose: 5 mg Documented by: DANE Ondansetron HCl (Zofran Odt) 4 mg PO Q6H PRN PRN Reason: Nausea/Vomiting Oxycodone/Acetaminophen (Percocet 325-5 Mg) 0 tab PO Q6H PRN PRN Reason: Pain (severe 7-10) Last Admin: 04/08/20 07:26 Dose: 1 tab Documented by: Admin: 04/07/20 23:07 Dose: 1 tab Documented by: Admin: 04/07/20 16:44 Dose: 2 tab Documented by: Admin: 04/07/20 10:36 Dose: 2 tab Documented by: Admin: 04/07/20 04:50 Dose: 2 tab Documented by: Admin: 04/06/20 21:59 Dose: 2 tab Documented by: Admin: 04/06/20 16:10 Dose: 2 tab Documented by: DANE Paliperidone (Invega) 6 mg PO DAILY [facility] Last Admin: 04/08/20 09:23 Dose: 6 mg Documented by: Admin: 04/07/20 10:26 Dose: 6 mg Documented by: DANE Pantoprazole Sodium (Protonix) 40 mg PO ACBREAKFAST [facility] Last Admin: 04/08/20 07:27 Dose: 40 mg Documented by: Admin: 04/07/20 06:59 Dose: 40 mg Documented by: DANE Pregabalin (Lyrica) 100 mg PO BID [facility] Last Admin: 04/08/20 09:30 Dose: 100 mg Documented by: Admin: 04/07/20 21:33 Dose: 100 mg Documented by: Admin: 04/07/20 09:16 Dose: 100 mg Documented by: Admin: 04/06/20 20:48 Dose: 100 mg Documented by: PAT Venlafaxine HCl (Effexor Xr) 300 mg PO DAILY [facility] Last Admin: 04/08/20 09:23 Dose: 300 mg Documented by: Admin: 04/07/20 09:13 Dose: 300 mg Documented by: DANE - Assessment Assessment (Free Text/Narrative):: Pain fairly well controlled, bedrest until surgery, no new complaints - Plan Plan (Free Text/Narrative):: Plan removal of head and liner and revision with cemented constrained poly liner tomorrow afternoon, NPO after 8:00
[2020-04-08] MEDS: Nicotine Polacrilex 2 MG Gum CHEW PRN ×2 (16:09→20:36)
[2020-04-08] MEDS: Nicotine 21 MG/24 Hr Patch TRDERM SCH (16:42)
[2020-04-09] MEDS: Ketorolac 30 MG/ML SDV IVPUSH SCH (02:50)
[2020-04-09] MEDS: Acetaminophen/HYDROcodone 325-5 MG Tab PO PRN (02:51)
[2020-04-09] MEDS: Morphine 30 MG Tab.ER PO SCH ×2 (05:11→20:18)
[2020-04-09] MEDS: OLANZapine 5 MG Tab PO SCH (08:02)
[2020-04-09] MEDS: ClonazePAM 1 MG Tab PO SCH ×3 (08:02→20:30)
[2020-04-09] MEDS: Pregabalin 100 MG Cap PO SCH ×2 (08:02→20:25)
[2020-04-09] MEDS: Paliperidone 3 MG Tab.ER PO SCH (08:02)
[2020-04-09] MEDS: Venlafaxine 75 MG Cap.ER PO SCH (08:03)
[2020-04-09] MEDS: atorvaSTATin 20 MG Tab PO SCH (08:03)
[2020-04-09] MEDS: Nicotine 21 MG/24 Hr Patch TRDERM SCH (08:03)
[2020-04-09] MEDS: Docusate Sodium 100 MG Cap PO SCH (08:03)
[2020-04-09] MEDS: Pantoprazole 40 MG Tab.CR PO SCH (08:03)
[2020-04-09] MEDS: Nozin Nasal Sanitizer NASBOTH SCH ×2 (08:04→20:20)
[2020-04-09] MEDS: Enoxaparin 30 MG/0.3 ML Syringe SUBCUT SCH (08:37)
[2020-04-09] MEDS ORDERED: Povidone-Iodine 10% Soln 118.25 ML Bottle ONE (10:56)
[2020-04-09] MEDS ORDERED: Propofol 200 MG/20 ML SDV ONE ×3 (14:47→17:43)
[2020-04-09] MEDS ORDERED: Midazolam 1 MG/ML 2 ML SDV ONE (14:47)
[2020-04-09] MEDS ORDERED: fentaNYL 100 MCG/2 ML SDV ONE (14:47)
[2020-04-09] MEDS: Morphine 2 MG/ML SYRINGE IVPUSH PRN (15:31)
[2020-04-09] MEDS ORDERED: Midazolam 1 MG/ML 5 ML SDV ONE (16:25)
[2020-04-09] MEDS ORDERED: Sodium Chloride 0.9% 1,000 ML IV SCH (18:00)
[2020-04-09] MEDS: Acetaminophen/oxyCODONE 325-5 MG Tab PO PRN (23:16)
[2020-04-10] MEDS: Nicotine Polacrilex 2 MG Gum CHEW PRN ×2 (00:56→23:43)
[2020-04-10] MEDS: ClonazePAM 1 MG Tab PO SCH ×3 (08:07→20:57)
[2020-04-10] MEDS: Pregabalin 100 MG Cap PO SCH ×2 (08:07→20:57)
[2020-04-10] MEDS: Morphine 30 MG Tab.ER PO SCH ×2 (08:07→20:57)
[2020-04-10] MEDS: Venlafaxine 75 MG Cap.ER PO SCH (08:17)
[2020-04-10] MEDS: Pantoprazole 40 MG Tab.CR PO SCH (08:18)
[2020-04-10] MEDS: OLANZapine 5 MG Tab PO SCH (08:18)
[2020-04-10] MEDS: atorvaSTATin 20 MG Tab PO SCH (08:18)
[2020-04-10] MEDS: Docusate Sodium 100 MG Cap PO SCH (08:18)
[2020-04-10] MEDS: Nicotine 21 MG/24 Hr Patch TRDERM SCH (08:18)
[2020-04-10] MEDS: Paliperidone 3 MG Tab.ER PO SCH (08:18)
[2020-04-10] MEDS: Nozin Nasal Sanitizer NASBOTH SCH ×2 (08:20→20:57)
[2020-04-10] MEDS: Enoxaparin 30 MG/0.3 ML Syringe SUBCUT SCH (08:54)
[2020-04-10] MEDS: Acetaminophen/oxyCODONE 325-5 MG Tab PO PRN (08:59)
[2020-04-10] MEDS: Acetaminophen/HYDROcodone 325-5 MG Tab PO PRN ×2 (13:10→23:43)
[2020-04-10] MEDS: Magnesium Hydroxide 400 MG/5 ML Susp 30 ML Cup PO PRN (14:23)
[2020-04-10] MEDS ORDERED: OLANZapine 5 MG Tab PO ONE (21:00)
[2020-04-11] MEDS: Acetaminophen/HYDROcodone 325-5 MG Tab PO PRN (03:23)
[2020-04-11] MEDS: Morphine 30 MG Tab.ER PO SCH ×2 (07:41→20:08)
[2020-04-11] MEDS: Pantoprazole 40 MG Tab.CR PO SCH (07:42)
[2020-04-11] MEDS: Enoxaparin 30 MG/0.3 ML Syringe SUBCUT SCH (09:07)
[2020-04-11] MEDS: atorvaSTATin 20 MG Tab PO SCH (09:07)
[2020-04-11] MEDS: Pregabalin 100 MG Cap PO SCH ×2 (09:07→20:06)
[2020-04-11] MEDS: Nicotine Polacrilex 2 MG Gum CHEW PRN ×4 (09:08→18:25)
[2020-04-11] MEDS: Venlafaxine 75 MG Cap.ER PO SCH (09:08)
[2020-04-11] MEDS: ClonazePAM 1 MG Tab PO SCH ×3 (09:08→20:06)
[2020-04-11] MEDS: Nicotine 21 MG/24 Hr Patch TRDERM SCH (09:08)
[2020-04-11] MEDS: Docusate Sodium 100 MG Cap PO SCH (09:08)
[2020-04-11] MEDS: Nozin Nasal Sanitizer NASBOTH SCH ×2 (09:08→20:06)
[2020-04-11] MEDS: Paliperidone 3 MG Tab.ER PO SCH (09:08)
[2020-04-11] MEDS: Magnesium Hydroxide 400 MG/5 ML Susp 30 ML Cup PO PRN (10:07)
[2020-04-11] MEDS: OLANZapine 5 MG Tab PO SCH (20:07)
[2020-04-12] MEDS: Nozin Nasal Sanitizer NASBOTH SCH ×2 (08:10→20:54)
[2020-04-12] MEDS: atorvaSTATin 20 MG Tab PO SCH (08:10)
[2020-04-12] MEDS: Nicotine 21 MG/24 Hr Patch TRDERM SCH (08:10)
[2020-04-12] MEDS: Enoxaparin 30 MG/0.3 ML Syringe SUBCUT SCH (08:10)
[2020-04-12] MEDS: Docusate Sodium 100 MG Cap PO SCH (08:12)
[2020-04-12] MEDS: Morphine 30 MG Tab.ER PO SCH ×2 (08:12→20:20)
[2020-04-12] MEDS: Pantoprazole 40 MG Tab.CR PO SCH (08:13)
[2020-04-12] MEDS: Venlafaxine 75 MG Cap.ER PO SCH (08:13)
[2020-04-12] MEDS: Paliperidone 3 MG Tab.ER PO SCH (08:13)
[2020-04-12] MEDS: ClonazePAM 1 MG Tab PO SCH ×3 (08:13→20:56)
[2020-04-12] MEDS: Pregabalin 100 MG Cap PO SCH ×2 (08:16→20:56)
[2020-04-12] MEDS: Acetaminophen/HYDROcodone 325-5 MG Tab PO PRN ×2 (13:04→18:34)
[2020-04-12] MEDS: Nicotine Polacrilex 2 MG Gum CHEW PRN ×3 (13:43→19:08)
[2020-04-12] MEDS: OLANZapine 5 MG Tab PO SCH (20:56)
[2020-04-13] MEDS: Pantoprazole 40 MG Tab.CR PO SCH (07:21)
[2020-04-13] MEDS: Morphine 30 MG Tab.ER PO SCH (07:21)
[2020-04-13] MEDS: Nozin Nasal Sanitizer NASBOTH SCH (08:38)
[2020-04-13] MEDS: Docusate Sodium 100 MG Cap PO SCH (08:38)
[2020-04-13] MEDS: Nicotine 21 MG/24 Hr Patch TRDERM SCH (08:39)
[2020-04-13] MEDS: Paliperidone 3 MG Tab.ER PO SCH (08:39)
[2020-04-13] MEDS: atorvaSTATin 20 MG Tab PO SCH (08:39)
[2020-04-13] MEDS: Venlafaxine 75 MG Cap.ER PO SCH (08:39)
[2020-04-13] MEDS: Enoxaparin 30 MG/0.3 ML Syringe SUBCUT SCH (08:40)
[2020-04-13] MEDS: Pregabalin 100 MG Cap PO SCH (08:42)
[2020-04-13] MEDS: ClonazePAM 1 MG Tab PO SCH ×2 (08:42→13:39)
[2020-04-13] MEDS: Nicotine Polacrilex 2 MG Gum CHEW PRN (10:21)
[2020-04-13] MEDS: Acetaminophen/oxyCODONE 325-5 MG Tab PO PRN (10:38)
--- NOTE | 2020-04-14 09:04 | PCM.SURGPN ---
- General Info Date of Service: 04/09/20 Date of Surgery/Procedure: 04/06/20 POD#: 3 Post-Op Diagnosis: Complication of orthopedic implant Functional Status: Reports: Pain Controlled, Tolerating Diet, Urinating - Review of Systems General: Reports: No Symptoms HEENT: Reports: No Symptoms Pulmonary: Reports: No Symptoms Cardiovascular: Reports: No Symptoms Gastrointestinal: Reports: No Symptoms Genitourinary: Reports: No Symptoms Musculoskeletal: Reports: Joint Pain Skin: Reports: No Symptoms Neurological: Reports: No Symptoms Psychiatric: Reports: No Symptoms - Patient Data Vitals - Most Recent: Last Vital Signs Temp 37.1 C 04/13/20 10:41 Pulse 100 04/13/20 10:41 Resp 18 04/13/20 10:41 BP 113/76 04/13/20 10:41 Pulse Ox 100 04/13/20 10:41 Weight - Most Recent: 81.647 kg Med Orders - Current: Current Medications Discontinued Medications Hydrocodone Bitart/Acetaminophen ([place] 325-5 Mg) 2 tab PO Q4H PRN PRN Reason: Pain (mild 1-3) Last Admin: 04/12/20 18:34 Dose: 2 tab Documented by: Amitriptyline HCl (Elavil) 100 mg PO BEDTIME [facility] Last Admin: 04/12/20 20:57 Dose: 100 mg Documented by: Atorvastatin Calcium (Lipitor) 20 mg PO DAILY [facility] Atorvastatin Calcium (Lipitor) 20 mg PO DAILY [facility] Last Admin: 04/13/20 08:39 Dose: 20 mg Documented by: Bandage/Support Products ( Nasal Filter Press Supervisor) 1 applic NASBOTH BID [facility] Last Admin: 04/13/20 08:38 Dose: 1 swab Documented by: Clonazepam (Klonopin) 1 mg PO TID [facility] Clonazepam (Klonopin) 1 mg PO TID [facility] Last Admin: 04/13/20 13:39 Dose: 1 mg Documented by: Diazepam (Valium.) 5 mg PO Q6H PRN PRN Reason: Muscle Spasm Dicyclomine HCl (Bentyl) 10 mg PO QID PRN PRN Reason: Pain Dicyclomine HCl (Bentyl) 10 mg PO QID PRN PRN Reason: Pain Docusate Sodium (Colace) 100 mg PO DAILY [facility] Docusate Sodium (Colace) 100 mg PO DAILY [facility] Last Admin: 04/13/20 08:38 Dose: Not Given Documented by: Enoxaparin Sodium (Lovenox) 30 mg SUBCUT DAILY [facility] Enoxaparin Sodium (Lovenox) 30 mg SUBCUT DAILY [facility] Last Admin: 04/13/20 08:40 Dose: 30 mg Documented by: Fentanyl (Sublimaze) Confirm Administered Dose 100 mcg .ROUTE .STK-MED ONE Stop: 04/06/20 08:41 Fentanyl (Sublimaze) Confirm Administered Dose 100 mcg .ROUTE .STK-MED ONE Stop: 04/06/20 13:00 Fentanyl (Sublimaze) Confirm Administered Dose 100 mcg .ROUTE .STK-MED ONE Stop: 04/06/20 14:00 Fentanyl (Sublimaze) Confirm Administered Dose 100 mcg .ROUTE .STK-MED ONE Stop: 04/09/20 14:48 Hydroxyzine HCl (Atarax) 50 mg PO Q6H PRN PRN Reason: ANXIETY Last Admin: 04/10/20 23:43 Dose: 50 mg Documented by: Cefazolin Sodium/Dextrose 2 gm (/ Premix) 50 mls @ 100 mls/hr IV ONETIME ONE Stop: 04/06/20 08:29 Last Admin: 04/06/20 10:45 Dose: 100 mls/hr Documented by: Lactated Ringer's (Ringers, Lactated) 1,000 mls @ 100 mls/hr IV ASDIRECTED [facility] Last Admin: 04/07/20 02:16 Dose: 100 mls/hr Documented by: Lactated Ringer's (Ringers, Lactated) Confirm Administered Dose 1,000 mls @ as directed .ROUTE .STK-MED ONE Stop: 04/06/20 11:35 Cefazolin Sodium 1 gm/ Sodium (Chloride) 50 mls @ 200 mls/hr IV Q8H [facility] Stop: 04/07/20 06:59 Last Admin: 04/06/20 16:10 Dose: Not Given Documented by: Cefazolin Sodium/Dextrose 1 gm (/ Premix) 50 mls @ 100 mls/hr IV Q8H [facility] Stop: 04/07/20 10:29 Last Admin: 04/07/20 09:17 Dose: 100 mls/hr Documented by: Sodium Chloride (Normal Saline) 500 mls @ 500 mls/hr IV .BOLUS ONE Stop: 04/06/20 23:01 Last Admin: 04/06/20 22:31 Dose: 500 mls/hr Documented by: Vancomycin HCl 1 gm/ Sodium (Chloride) 250 mls @ 150 mls/hr IV ONETIME ONE Stop: 04/09/20 17:09 Last Admin: 04/09/20 16:20 Dose: 150 mls/hr Documented by: Vancomycin HCl 1 gm/ Sodium (Chloride) 250 mls @ 150 mls/hr IV Q12H [facility] Stop: 04/11/20 05:39 Last Admin: 04/11/20 03:30 Dose: 150 mls/hr Documented by: Sodium Chloride (Normal Saline) 1,000 mls @ 100 mls/hr IV ASDIRECTED [facility] Last Admin: 04/09/20 19:57 Dose: 100 mls/hr Documented by: Ketorolac Tromethamine (Toradol) 30 mg IVPUSH Q8H [facility] Stop: 04/09/20 03:01 Last Admin: 04/09/20 02:50 Dose: 30 mg Documented by: Magnesium Hydroxide (Milk Of Magnesia) 30 ml PO Q6H PRN PRN Reason: Stool Softener Last Admin: 04/11/20 10:07 Dose: 30 ml Documented by: Methylphenidate HCl (Concerta) 36 mg PO DAILY [facility] Last Admin: 04/08/20 11:04 Dose: Not Given Documented by: Midazolam HCl (Versed 1 Mg/Ml) Confirm Administered Dose 2 mg .ROUTE .STK-MED ONE Stop: 04/06/20 08:41 Midazolam HCl (Versed 1 Mg/Ml) Confirm Administered Dose 2 mg .ROUTE .STK-MED ONE Stop: 04/06/20 11:03 Midazolam HCl (Versed 1 Mg/Ml) Confirm Administered Dose 2 mg .ROUTE .STK-MED ONE Stop: 04/09/20 14:48 Midazolam HCl (Versed 1 Mg/Ml) Confirm Administered Dose 5 mg .ROUTE .STK-MED ONE Stop: 04/09/20 16:26 Morphine Sulfate (Morphine) 2 mg IVPUSH Q1H PRN PRN Reason: Breakthrough Pain Last Admin: 04/09/20 15:31 Dose: 2 mg Documented by: Morphine Sulfate (Ms Contin) 30 mg PO Q12H [facility] Last Admin: 04/10/20 08:07 Dose: 30 mg Documented by: Morphine Sulfate (Morphine) 3 mg IVPUSH ONETIME ONE Stop: 04/06/20 14:51 Last Admin: 04/06/20 14:57 Dose: 3 mg Documented by: Morphine Sulfate (Ms Contin) 30 mg PO Q12H [facility] Last Admin: 04/13/20 07:21 Dose: 30 mg Documented by: Nicotine (Habitrol) 21 mg TRDERM DAILY [facility] Last Admin: 04/13/20 08:39 Dose: 21 mg Documented by: Nicotine Polacrilex (Nicorelief) 2 mg CHEW Q1H PRN PRN Reason: NICOTINE CRAVINGS Last Admin: 04/13/20 10:21 Dose: 2 mg Documented by: Non-Formulary Medication (Amitriptyline Hcl [Amitriptyline Hcl]) 100 mg PO BEDTIME [facility] Non-Formulary Medication (Hydroxyzine Pamoate [Hydroxyzine Pamoate]) 50 mg PO Q6HR PRN PRN Reason: Anxiety Non-Formulary Medication (Methylphenidate Hcl [Methylphenidate Er]) 36 mg PO DAILY [facility] Non-Formulary Medication (Olanzapine [Zyprexa]) 5 mg PO DAILY [facility] Non-Formulary Medication (Omeprazole Magnesium [Prilosec Otc]) 20 mg PO DAILY [facility] Non-Formulary Medication (Paliperidone [Invega]) 6 mg PO DAILY [facility] Non-Formulary Medication (Venlafaxine [Effexor Xr]) 375 mg PO DAILY [facility] Olanzapine (Zyprexa) 5 mg PO DAILY [facility] Last Admin: 04/10/20 08:18 Dose: 5 mg Documented by: Olanzapine (Zyprexa) 5 mg PO ONETIME ONE Stop: 04/10/20 21:01 Last Admin: 04/10/20 21:03 Dose: 5 mg Documented by: Olanzapine (Zyprexa) 10 mg PO BEDTIME [facility] Last Admin: 04/12/20 20:56 Dose: 10 mg Documented by: Ondansetron HCl (Zofran Odt) 4 mg PO Q6H PRN PRN Reason: Nausea/Vomiting Oxycodone/Acetaminophen (P[place] 325-5 Mg) 0 tab PO Q6H PRN PRN Reason: Pain (severe 7-10) Last Admin: 04/13/20 10:38 Dose: 1 tab Documented by: Paliperidone (Invega) 6 mg PO DAILY [facility] Last Admin: 04/13/20 08:39 Dose: 6 mg Documented by: Pantoprazole Sodium (Protonix) 40 mg PO ACBREAKFAST [facility] Last Admin: 04/13/20 07:21 Dose: 40 mg Documented by: Povidone Iodine (Betadine 10% Soln) Confirm Administered Dose 1 ml .ROUTE .STK- MED ONE Stop: 04/06/20 06:53 Last Admin: 04/06/20 14:04 Dose: 40 ml Documented by: Povidone Iodine (Betadine 10% Soln) Confirm Administered Dose 1 ml .ROUTE .STK- MED ONE Stop: 04/09/20 10:57 Last Admin: 04/09/20 16:52 Dose: 40 ml Documented by: Pregabalin (Lyrica) 100 mg PO BID [facility] Pregabalin (Lyrica) 100 mg PO BID [facility] Last Admin: 04/13/20 08:42 Dose: 100 mg Documented by: Propofol (Diprivan 20 Ml) Confirm Administered Dose 200 mg .ROUTE .STK-MED ONE Stop: 04/06/20 08:41 Propofol (Diprivan 20 Ml) Confirm Administered Dose 200 mg .ROUTE .STK-MED ONE Stop: 04/06/20 11:36 Propofol (Diprivan 20 Ml) Confirm Administered Dose 200 mg .ROUTE .STK-MED ONE Stop: 04/06/20 13:02 Propofol (Diprivan 20 Ml) Confirm Administered Dose 200 mg .ROUTE .STK-MED ONE Stop: 04/09/20 14:48 Propofol (Diprivan 20 Ml) Confirm Administered Dose 200 mg .ROUTE .STK-MED ONE Stop: 04/09/20 17:09 Propofol (Diprivan 20 Ml) Confirm Administered Dose 200 mg .ROUTE .STK-MED ONE Stop: 04/09/20 17:44 Venlafaxine HCl (Effexor Xr) 300 mg PO DAILY [facility] Last Admin: 04/13/20 08:39 Dose: 300 mg Documented by: - Exam Wound/Incisions: Drainage (serosanginous) General: Alert, Oriented HEENT: Pupils Equal Neck: Supple Lungs: Clear to Auscultation, Normal Respiratory Effort Cardiovascular: Regular Rate, Regular Rhythm GI/Abdominal Exam: Normal Bowel Sounds, Soft, Non-Tender, No Distention Extremities: Limited Range of Motion Skin: Warm Neurological: No New Focal Deficit Psy/Mental Status: Alert, Normal Affect, Normal Mood Sepsis Event Note - Evaluation Sepsis Screening Result: No Definite Risk - Focused Exam Date Exam was Performed: 04/14/20 Time Exam was Performed: 09:00 - Problem List & Annotations (1) Failed total hip arthroplasty with dislocation SNOMED Code(s): 802176504 Code(s): T84.028A - DISLOCATION OF OTHER INTERNAL JOINT PROSTHESIS, INIT ENCNTR; Z96.649 - PRESENCE OF UNSPECIFIED ARTIFICIAL HIP JOINT Status: Acute Qualifiers: Encounter type: sequela Laterality: left Qualified Code(s): T84.021S - Dislocation of internal left hip prosthesis, sequela (2) Hip pain, left SNOMED Code(s): 27240887 Code(s): M25.552 - PAIN IN LEFT HIP Status: Acute (3) S/P revision of total hip SNOMED Code(s): 221356812, 251139348, 204742776, 115057052 Code(s): Z96.649 - PRESENCE OF UNSPECIFIED ARTIFICIAL HIP JOINT Status: Acute (4) Unequal limb length (acquired), unspecified site SNOMED Code(s): 578086579852406 Code(s): M21.70 - UNEQUAL LIMB LENGTH (ACQUIRED), UNSPECIFIED SITE Status: Acute - Problem List Review Problem List Initiated/Reviewed/Updated: Yes - Assessment Assessment (Free Text/Narrative):: Reasonably comfortable at bed rest, no fevers, Implants for revision here today, plan cemented constrained liner today.
--- NOTE | 2020-04-14 09:10 | PCM.SURGPN ---
- General Info Date of Service: 04/10/20 Date of Surgery/Procedure: 04/09/20 POD#: 1 Functional Status: Reports: Pain Controlled - Review of Systems General: Reports: No Symptoms HEENT: Reports: No Symptoms Pulmonary: Reports: No Symptoms Cardiovascular: Reports: No Symptoms Gastrointestinal: Reports: No Symptoms Genitourinary: Reports: No Symptoms Musculoskeletal: Reports: Joint Pain Skin: Reports: No Symptoms Neurological: Reports: Confusion Psychiatric: Reports: Confusion, Agitation - Patient Data Vitals - Most Recent: Last Vital Signs Temp 37.1 C 04/13/20 10:41 Pulse 100 04/13/20 10:41 Resp 18 04/13/20 10:41 BP 113/76 04/13/20 10:41 Pulse Ox 100 04/13/20 10:41 Weight - Most Recent: 81.647 kg Med Orders - Current: Current Medications Discontinued Medications Hydrocodone Bitart/Acetaminophen ([place] 325-5 Mg) 2 tab PO Q4H PRN PRN Reason: Pain (mild 1-3) Last Admin: 04/12/20 18:34 Dose: 2 tab Documented by: Amitriptyline HCl (Elavil) 100 mg PO BEDTIME [facility] Last Admin: 04/12/20 20:57 Dose: 100 mg Documented by: Atorvastatin Calcium (Lipitor) 20 mg PO DAILY [facility] Atorvastatin Calcium (Lipitor) 20 mg PO DAILY [facility] Last Admin: 04/13/20 08:39 Dose: 20 mg Documented by: Bandage/Support Products ( Nasal Convention Manager) 1 applic NASBOTH BID [facility] Last Admin: 04/13/20 08:38 Dose: 1 swab Documented by: Clonazepam (Klonopin) 1 mg PO TID [facility] Clonazepam (Klonopin) 1 mg PO TID [facility] Last Admin: 04/13/20 13:39 Dose: 1 mg Documented by: Diazepam (Valium.) 5 mg PO Q6H PRN PRN Reason: Muscle Spasm Dicyclomine HCl (Bentyl) 10 mg PO QID PRN PRN Reason: Pain Dicyclomine HCl (Bentyl) 10 mg PO QID PRN PRN Reason: Pain Docusate Sodium (Colace) 100 mg PO DAILY [facility] Docusate Sodium (Colace) 100 mg PO DAILY [facility] Last Admin: 04/13/20 08:38 Dose: Not Given Documented by: Enoxaparin Sodium (Lovenox) 30 mg SUBCUT DAILY [facility] Enoxaparin Sodium (Lovenox) 30 mg SUBCUT DAILY [facility] Last Admin: 04/13/20 08:40 Dose: 30 mg Documented by: Fentanyl (Sublimaze) Confirm Administered Dose 100 mcg .ROUTE .STK-MED ONE Stop: 04/06/20 08:41 Fentanyl (Sublimaze) Confirm Administered Dose 100 mcg .ROUTE .STK-MED ONE Stop: 04/06/20 13:00 Fentanyl (Sublimaze) Confirm Administered Dose 100 mcg .ROUTE .STK-MED ONE Stop: 04/06/20 14:00 Fentanyl (Sublimaze) Confirm Administered Dose 100 mcg .ROUTE .STK-MED ONE Stop: 04/09/20 14:48 Hydroxyzine HCl (Atarax) 50 mg PO Q6H PRN PRN Reason: ANXIETY Last Admin: 04/10/20 23:43 Dose: 50 mg Documented by: Cefazolin Sodium/Dextrose 2 gm (/ Premix) 50 mls @ 100 mls/hr IV ONETIME ONE Stop: 04/06/20 08:29 Last Admin: 04/06/20 10:45 Dose: 100 mls/hr Documented by: Lactated Ringer's (Ringers, Lactated) 1,000 mls @ 100 mls/hr IV ASDIRECTED [facility] Last Admin: 04/07/20 02:16 Dose: 100 mls/hr Documented by: Lactated Ringer's (Ringers, Lactated) Confirm Administered Dose 1,000 mls @ as directed .ROUTE .STK-MED ONE Stop: 04/06/20 11:35 Cefazolin Sodium 1 gm/ Sodium (Chloride) 50 mls @ 200 mls/hr IV Q8H [facility] Stop: 04/07/20 06:59 Last Admin: 04/06/20 16:10 Dose: Not Given Documented by: Cefazolin Sodium/Dextrose 1 gm (/ Premix) 50 mls @ 100 mls/hr IV Q8H [facility] Stop: 04/07/20 10:29 Last Admin: 04/07/20 09:17 Dose: 100 mls/hr Documented by: Sodium Chloride (Normal Saline) 500 mls @ 500 mls/hr IV .BOLUS ONE Stop: 04/06/20 23:01 Last Admin: 04/06/20 22:31 Dose: 500 mls/hr Documented by: Vancomycin HCl 1 gm/ Sodium (Chloride) 250 mls @ 150 mls/hr IV ONETIME ONE Stop: 04/09/20 17:09 Last Admin: 04/09/20 16:20 Dose: 150 mls/hr Documented by: Vancomycin HCl 1 gm/ Sodium (Chloride) 250 mls @ 150 mls/hr IV Q12H [facility] Stop: 04/11/20 05:39 Last Admin: 04/11/20 03:30 Dose: 150 mls/hr Documented by: Sodium Chloride (Normal Saline) 1,000 mls @ 100 mls/hr IV ASDIRECTED [facility] Last Admin: 04/09/20 19:57 Dose: 100 mls/hr Documented by: Ketorolac Tromethamine (Toradol) 30 mg IVPUSH Q8H [facility] Stop: 04/09/20 03:01 Last Admin: 04/09/20 02:50 Dose: 30 mg Documented by: Magnesium Hydroxide (Milk Of Magnesia) 30 ml PO Q6H PRN PRN Reason: Stool Softener Last Admin: 04/11/20 10:07 Dose: 30 ml Documented by: Methylphenidate HCl (Concerta) 36 mg PO DAILY [facility] Last Admin: 04/08/20 11:04 Dose: Not Given Documented by: Midazolam HCl (Versed 1 Mg/Ml) Confirm Administered Dose 2 mg .ROUTE .STK-MED ONE Stop: 04/06/20 08:41 Midazolam HCl (Versed 1 Mg/Ml) Confirm Administered Dose 2 mg .ROUTE .STK-MED ONE Stop: 04/06/20 11:03 Midazolam HCl (Versed 1 Mg/Ml) Confirm Administered Dose 2 mg .ROUTE .STK-MED ONE Stop: 04/09/20 14:48 Midazolam HCl (Versed 1 Mg/Ml) Confirm Administered Dose 5 mg .ROUTE .STK-MED ONE Stop: 04/09/20 16:26 Morphine Sulfate (Morphine) 2 mg IVPUSH Q1H PRN PRN Reason: Breakthrough Pain Last Admin: 04/09/20 15:31 Dose: 2 mg Documented by: Morphine Sulfate (Ms Contin) 30 mg PO Q12H [facility] Last Admin: 04/10/20 08:07 Dose: 30 mg Documented by: Morphine Sulfate (Morphine) 3 mg IVPUSH ONETIME ONE Stop: 04/06/20 14:51 Last Admin: 04/06/20 14:57 Dose: 3 mg Documented by: Morphine Sulfate (Ms Contin) 30 mg PO Q12H [facility] Last Admin: 04/13/20 07:21 Dose: 30 mg Documented by: Nicotine (Habitrol) 21 mg TRDERM DAILY [facility] Last Admin: 04/13/20 08:39 Dose: 21 mg Documented by: Nicotine Polacrilex (Nicorelief) 2 mg CHEW Q1H PRN PRN Reason: NICOTINE CRAVINGS Last Admin: 04/13/20 10:21 Dose: 2 mg Documented by: Non-Formulary Medication (Amitriptyline Hcl [Amitriptyline Hcl]) 100 mg PO BEDTIME [facility] Non-Formulary Medication (Hydroxyzine Pamoate [Hydroxyzine Pamoate]) 50 mg PO Q6HR PRN PRN Reason: Anxiety Non-Formulary Medication (Methylphenidate Hcl [Methylphenidate Er]) 36 mg PO DAILY [facility] Non-Formulary Medication (Olanzapine [Zyprexa]) 5 mg PO DAILY [facility] Non-Formulary Medication (Omeprazole Magnesium [Prilosec Otc]) 20 mg PO DAILY [facility] Non-Formulary Medication (Paliperidone [Invega]) 6 mg PO DAILY [facility] Non-Formulary Medication (Venlafaxine [Effexor Xr]) 375 mg PO DAILY [facility] Olanzapine (Zyprexa) 5 mg PO DAILY [facility] Last Admin: 04/10/20 08:18 Dose: 5 mg Documented by: Olanzapine (Zyprexa) 5 mg PO ONETIME ONE Stop: 04/10/20 21:01 Last Admin: 04/10/20 21:03 Dose: 5 mg Documented by: Olanzapine (Zyprexa) 10 mg PO BEDTIME [facility] Last Admin: 04/12/20 20:56 Dose: 10 mg Documented by: Ondansetron HCl (Zofran Odt) 4 mg PO Q6H PRN PRN Reason: Nausea/Vomiting Oxycodone/Acetaminophen (Percocet 325-5 Mg) 0 tab PO Q6H PRN PRN Reason: Pain (severe 7-10) Last Admin: 04/13/20 10:38 Dose: 1 tab Documented by: Paliperidone (Invega) 6 mg PO DAILY [facility] Last Admin: 04/13/20 08:39 Dose: 6 mg Documented by: Pantoprazole Sodium (Protonix) 40 mg PO ACBREAKFAST [facility] Last Admin: 04/13/20 07:21 Dose: 40 mg Documented by: Povidone Iodine (Betadine 10% Soln) Confirm Administered Dose 1 ml .ROUTE .STK- MED ONE Stop: 04/06/20 06:53 Last Admin: 04/06/20 14:04 Dose: 40 ml Documented by: Povidone Iodine (Betadine 10% Soln) Confirm Administered Dose 1 ml .ROUTE .STK- MED ONE Stop: 04/09/20 10:57 Last Admin: 04/09/20 16:52 Dose: 40 ml Documented by: Pregabalin (Lyrica) 100 mg PO BID [facility] Pregabalin (Lyrica) 100 mg PO BID [facility] Last Admin: 04/13/20 08:42 Dose: 100 mg Documented by: Propofol (Diprivan 20 Ml) Confirm Administered Dose 200 mg .ROUTE .STK-MED ONE Stop: 04/06/20 08:41 Propofol (Diprivan 20 Ml) Confirm Administered Dose 200 mg .ROUTE .STK-MED ONE Stop: 04/06/20 11:36 Propofol (Diprivan 20 Ml) Confirm Administered Dose 200 mg .ROUTE .STK-MED ONE Stop: 04/06/20 13:02 Propofol (Diprivan 20 Ml) Confirm Administered Dose 200 mg .ROUTE .STK-MED ONE Stop: 04/09/20 14:48 Propofol (Diprivan 20 Ml) Confirm Administered Dose 200 mg .ROUTE .STK-MED ONE Stop: 04/09/20 17:09 Propofol (Diprivan 20 Ml) Confirm Administered Dose 200 mg .ROUTE .STK-MED ONE Stop: 04/09/20 17:44 Venlafaxine HCl (Effexor Xr) 300 mg PO DAILY [facility] Last Admin: 04/13/20 08:39 Dose: 300 mg Documented by: - Exam Wound/Incisions: No Drainage General: Alert HEENT: Pupils Equal Neck: Supple Lungs: Clear to Auscultation, Normal Respiratory Effort Cardiovascular: Regular Rate, Regular Rhythm GI/Abdominal Exam: Normal Bowel Sounds, Soft, Non-Tender, No Organomegaly, No Distention, No Abnormal Bruit, No Mass, Pelvis Stable Extremities: Limited Range of Motion Skin: Warm, Dry Neurological: No New Focal Deficit Psy/Mental Status: Agitated Sepsis Event Note - Evaluation Sepsis Screening Result: No Definite Risk - Focused Exam Date Exam was Performed: 04/14/20 Time Exam was Performed: 09:04 - Problem List & Annotations (1) Failed total hip arthroplasty with dislocation SNOMED Code(s): 981445503 Code(s): T84.028A - DISLOCATION OF OTHER INTERNAL JOINT PROSTHESIS, INIT ENCNTR; Z96.649 - PRESENCE OF UNSPECIFIED ARTIFICIAL HIP JOINT Status: Acute Qualifiers: Encounter type: sequela Laterality: left Qualified Code(s): T84.021S - Dislocation of internal left hip prosthesis, sequela (2) Hip pain, left SNOMED Code(s): 03949710 Code(s): M25.552 - PAIN IN LEFT HIP Status: Acute (3) S/P revision of total hip SNOMED Code(s): 525597079, 931853662, 788902949, 841514379 Code(s): Z96.649 - PRESENCE OF UNSPECIFIED ARTIFICIAL HIP JOINT Status: Acute (4) Unequal limb length (acquired), unspecified site SNOMED Code(s): 592332383222009 Code(s): M21.70 - UNEQUAL LIMB LENGTH (ACQUIRED), UNSPECIFIED SITE Status: Acute - Problem List Review Problem List Initiated/Reviewed/Updated: Yes - Assessment Assessment (Free Text/Narrative):: Agitated and confused this morning when he awoke, did not remember where he was or why he was here, after going back to sleep was better later in the morning. Explained where he was why he was here and what was going on, he expressed understanding and was cooperative throughout the rest of the day. - Plan Plan (Free Text/Narrative):: Restart PT, antibiotics thru today, watch metal status and start arrangements for discharge.
--- NOTE | 2020-04-16 19:23 | OR ---
DATE OF PROCEDURE: 04/06/2020 SURGEON: Erik Cervantes MD PREOPERATIVE DIAGNOSIS: Chronic dislocation, left total hip arthroplasty. POSTOPERATIVE DIAGNOSES: 1. Chronic dislocation, left total hip arthroplasty. 2. Adduction and flexion contractures, left hip. 3. Maceration and rupture of iliopsoas tendon. PROCEDURES PERFORMED: 1. Revision of left hip acetabular liner to a constrained component. 2. Debridement of iliopsoas tendon. 3. Release of adhesions. ANESTHESIA: Spinal with sedation. INDICATIONS: Mr. Watkins is a 54-year-old gentleman with an extremely complicated history relative to both hips. He recently underwent a large reconstruction at another facility with an acetabular buttress and Jumbo cup construct. A smaller G7 cup was cemented into the larger Jumbo cup and then a liner for a dual-mobility head was placed within this. He sustained a pelvic fracture after this revision resulting in loss of position of the components and dislocation. The component has been dislocated since December. He now presents for attempted revision maintaining the large cemented construct and converting it from a dual-mobility cup to a constrained liner. Risks, benefits, and potential complications of the procedure were discussed at some length with Wilfredo. DESCRIPTION OF PROCEDURE: After adequate anesthesia was obtained, the patient was placed in the lateral decubitus position and secured with the hip positioner. Leg was noted to have significant loss of range of motion, inability to fully extend the leg even under anesthesia and significant adduction contracture as well. The leg was prepped and draped in a sterile fashion. Previous incision was utilized, carried down through the subcutaneous tissues. Tensor fascia and fascia yany were divided. Significant adhesions were noted between muscle planes and release of adhesions was accomplished with use of a Bovie electrocautery attempting to recreate planes. The hip was found to be dislocated and situated significantly superior to the acetabulum. The head was removed from the stem without difficulty. Further release of adhesions was required for adequate access to the acetabulum. 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 Also, of note, his abductor tendons were significantly damaged and atrophied. Once access to the acetabular components was achieved, retractors were placed. Evaluation of this revealed the liner to be in position. Just anterior and inferior to the liner and in some cases protruding into the empty cup was a macerated mass of musculotendinous tissue. This was debrided with the Bovie electrocautery and appeared to consist of the iliopsoas tendon and portion of the muscle. Further evaluating down along the medial portion of the femur, the iliopsoas tendon could not be palpated on the lesser tuberosity confirming this. With retractors placed about the acetabulum, multiple attempts were made to loosen the liner by gently tapping around the rim and placing suction traction on the liner. After numerous attempts at this were unsuccessful, osteotomes were used to loosen the liner from the underlying cup. Once this was finally accomplished, the cement was noted to have protruded through the multiple holes in the cemented cup. These intruded into the liner locking mechanism somewhat. Using a combination of osteotomes and [place] elevators, the recess for the locking mechanism was cleared of cement and all the cement was removed preventing a flush position of the new planned liner. This was thoroughly irrigated. Trial was placed and efforts were made to make a trial reduction of the hip. Again, due to the prolonged time which the hip had been dislocated, significant contractures were present. The hip was eventually able to be brought down into the acetabulum. The constrained liner for the G7 cup was then impacted into position. Confirmation of locking into the cup was done by attempting to dislodge it with significant amount of pressure. Locking mechanism held. A -6 mm femoral head was then placed on the stem, and the head maneuvered over the liner in order to force it into the cup. This was accomplished. The hip was taken through range of motion, was stable within the cup. Multiple attempts were made to dislocate the hip, which were unsuccessful. The hip was then irrigated. Tensor fascia and fascia yany were repaired in a [id number] fashion with #2 Ethibond. The skin was closed with 2-0 Vicryl and a running 3-0 Monocryl. Steri-Strips were applied. Sterile dressing was then placed. The patient tolerated the procedure very well despite the length of the procedure. He was taken from the operating room in stable condition. Erik Cervantes MD /[id number]
--- NOTE | 2020-04-16 19:41 | OR ---
DATE OF PROCEDURE: 04/09/2020 SURGEON: Erik Cervantes MD PREOPERATIVE DIAGNOSIS: Recurrent dislocation of the left hip with failed locking mechanism. POSTOPERATIVE DIAGNOSIS: Recurrent dislocation of the left hip with failed locking mechanism. PROCEDURE: Revision of acetabular liner. ANESTHESIA: Spinal with sedation. INDICATIONS: Mr. Watkins is a 54-year-old gentleman again with a very complicated history relative to his left hip. He recently underwent removal of dual-mobility cup and head and conversion to a constrained G7 liner. He initially was doing well with this. However, on the afternoon of postoperative day 1 was up and walking when he felt a pop, and x-ray confirms that the locking mechanism maintained the head in the acetabular liner; however, the liner became dissociated from the cup. He now presents for revision of this to a cemented constrained cup. Again, the risks, benefits, and potential complications were discussed. Wilfredo is aware this is a very complicated situation. PROCEDURE IN DETAIL: After adequate anesthesia was obtained, the patient was positioned in the lateral decubitus position and secured with a hip positioner. The hip and leg were prepped and draped in a sterile fashion. The dressing did have some serosanguineous drainage on it, but there was no dehiscence and no evidence of erythema or infection. The previous incision was opened, including the repair of the tensor fascia. This was thoroughly irrigated. The liner was found to be dissociated from the cup and still locked onto the femoral head. The entire head and liner were then removed from the stem. The acetabular liner was evaluated, and it was thought that the locking mechanism rim had been damaged by removal of the previous liner and cement. Attempt at replacing this liner would likely be unsuccessful and result in similar failure. A drill was used to drill out cement from multiple holes, creating additional points of fixation for cement. This was then irrigated. The liner was then dried, and a constrained liner was then cemented in place. The liner was undersized by 4 mm to allow for cement mantle and was also positioned slightly more into anteversion as the pelvic fracture resulted in some loss of position and attempting to add additional buttress to posterior dislocation. Excess cement was removed. The liner was held in position as the cement cured. Care was taken to make sure that the cement was not impeding anywhere that would prevent the locking ring to seat well. A -3.5 neck length head was then placed on the stem and reduced into the liner. The locking ring was then tapped into position onto the cup. Confirmation of locking of this was made by both visualization as it appeared to be symmetrically in position over the liner. An attempt was made to dislodge it with a [place] elevator and an osteotome, which was unsuccessful. The hip was taken through range of motion, and again, attempts were made to dislocate the hip, which were unsuccessful. The hip was then irrigated once again with pulse lavage, followed by irrigation with dilute Betadine solution and irrigated a final time. The hip was then closed in a similar fashion to the previous procedure with #2 Ethibond in the tensor fascia and 2-0 Vicryl and running 3-0 Monocryl. Steri-Strips were not applied in this case, and a COSTA dressing was applied. The patient tolerated this very well, there were no complications, and was taken from the operating room in stable condition. Erik Cervantes MD /[id number]
== END 2020-04-13 14:20 | disposition home health service (06) | DRG 468 ==
LOC: JP.SDS 07:59 → JP.SDSSCHI 07:59 → EDSTATUS 08:30 → JP.MS 14:31
PROVIDERS: ADMIT Specialist; ATTEND Specialist
PROC: 0SPB09Z Removal of Liner from Left Hip Joint, Open Approach (ICD-10-PCS; principal; 2020-04-06)
PROC: 0SUE09Z Supplement Left Hip Joint, Acetabular Surface with Liner, Open Approach (ICD-10-PCS; 2020-04-06)
PROC: 0SPB09Z Removal of Liner from Left Hip Joint, Open Approach (ICD-10-PCS; 2020-04-09)
PROC: 0SUE09Z Supplement Left Hip Joint, Acetabular Surface with Liner, Open Approach (ICD-10-PCS; 2020-04-09)
DX: T84.021A Dislocation of internal left hip prosthesis, initial encounter (principal); D64.9 Anemia, unspecified; G47.33 Obstructive sleep apnea (adult) (pediatric); G89.4 Chronic pain syndrome; E55.9 Vitamin D deficiency, unspecified; E78.2 Mixed hyperlipidemia; Z20.828 Contact with and (suspected) exposure to other viral communicable diseases; Z79.899 Other long term (current) drug therapy; M21.70 Unequal limb length (acquired), unspecified site; M24.552 Contracture, left hip; M66.88 Spontaneous rupture of other tendons, other sites
CPT/HCPCS: 36415; 36430; 72170; 72170-26; 73501-26-LT; 73501-LT; 80048; 80053; 85027; 86850; 86900; 86901; 86920; 86922; 97110-GP; 97162-GP; 97163-GP; 97165-GO; 97530-GP; 97535-GP; A9270-GY; C1713; C1776; J0690; J1650; J1885; J2250; J2270; J2704; J3010; J3370; J7030; J7040; J7050; J7120; P9016